=== PATIENT | male | born 1990 | race Caucasian/White ===

== ENCOUNTER 2021-03-27 14:06 | Emergency (ER) | payer MEDICAID, SELFPAY ==
[2021-03-27 14:16] VITALS: BP 150/92; PULSE 81; RESP 18; TEMP 36.7; O2SAT 100
--- NOTE | 2021-03-27 14:23 | ED.ABDPAIN ---
HPI - Abdominal Pain General Chief Complaint: Abdominal Pain Stated Complaint: vomiting/abdominal pain/chills/sore throat Time Seen by Provider: 03/27/21 14:27 Source: patient and RN notes reviewed Mode of arrival: ambulatory Limitations: no limitations History of Present Illness HPI narrative: 31-year-old male presents to the [facility] with complaints of right upper quadrant pain, nausea, vomiting, body aches for the last 3 days. Has not been able to eat or drink. Is requesting IV fluids. MD elicited complaint: abdominal pain Related Data Allergies Allergy/AdvReac Type Severity Reaction Status Date / Time No Known Allergies Allergy Unverified 09/23/14 00:46 Review of Systems Review of Systems: All systems reviewed & are unremarkable except as noted in HPI and below Constitutional: Constitutional: Reports as per HPI, Denies chills, Reports fatigue and Denies fever(s) Eyes: Eyes: Reports no additional eye complaints ENT: Reports system reviewed and no additional complaints, except as documented Cardiovascular: Cardiovascular: Reports no additional cardiovascular complaints and Denies chest pain Respiratory: Respiratory: Reports no additional respiratory complaints, Denies cough and Denies dyspnea Gastrointestinal: Gastrointestinal: Reports as per HPI, Reports abdominal pain, Reports nausea and Reports vomiting Genitourinary: Genitourinary: Reports no additional male genitourinary complaints Musculoskeletal: Musculoskeletal: Reports no additional musculoskeletal complaints Integumentary/Breasts: Skin/Breast: Reports system reviewed and no additional complaints, except as docu Neurologic: Reports system reviewed and no additional complaints, except as documented Psychiatric: Psychiatric: Reports no additional psychiatric complaints Allergic/Immunologic: Allergic/Immunologic: Reports no additional allergic/immunologic complaints PMFSH Past Medical History Medical History (Updated 03/27/21 @ 15:07 by Jagruti Castellanos) No significant medical problems Surgical History Surgical History (Updated 03/27/21 @ 15:04 by Jagruti Castellanos) No significant past surgical history Social History Social History (Updated 03/27/21 @ 15:04 by Jagruti Castellanos) Gender identity (if verbalized by the patient): Male Comments At the time of my signature, I reviewed and agree with the nursing past medical, surgical, social, and family history. There is no relevant family history pertinent to the patient complaint. Exam Const: General: no acute distress, alert and ill appearing acutely Nutritional Appearance: well nourished and obese Orientation/consciousness: patient oriented x3 Limitations: no limitations HENMT: Head: normal to inspection Ears: external ears normal, TM normal on the left and EAC's normal General nose exam: Normal external nose present and Normal nasal mucous membranes and turbinates present Mouth: No lip normal (Try), Yes dry mucous membranes and Yes malodorous breath Throat: posterior oropharynx normal, tonsils normal and uvula midline Eyes: Pupils: Equal, round and reactive pupils present Neck: Neck: normal visual inspection, no lymphadenopathy and no meningeal signs Chest: Chest palpation & inspection: normal inspection of the chest Resp: Effort & Inspection: normal respiratory effort Auscultation: clear to auscultation bilaterally Cardio: Rate: regular rate Rhythm: regular rhythm GI: GI Palp: Yes Soft to palpation and Yes Tenderness to palpation present (GI) (Epigastric, right upper quadrant) Back/Spine/Pelvis: Back: no CVA tenderness Skin: General skin exam: normal color Rashes: no rashes Wounds: no wounds Neuro: General: patient oriented x3, moves all extremities, no meningeal signs and no focal motor deficits Speech: normal speech Gait exam (Neuro): Normal gait present Extrem: General: normal to inspection Psych: Appearance: grossly normal and well kempt Mental Status: mental statu
[2021-03-28 18:52] LABS: SARS-CoV-2 RNA PCR Negative
== END 2021-03-27 14:36 | disposition short-term general hospital (02) ==
LOC: EXPCOLL 14:09
PROVIDERS: Emergency Provider Nurse Practitioner
DX: R10.11 Right upper quadrant pain (principal); R11.2 Nausea with vomiting, unspecified; Z20.822 Contact with and (suspected) exposure to COVID-19
CPT/HCPCS: 87081; 87880; 99213; C9803; G0463; U0003; U0005

== ENCOUNTER 2021-03-27 14:58 | Emergency (ER) | payer MEDICAID, SELFPAY ==
[2021-03-27] VITALS (7 sets, daily range): BP systolic 138–159; BP diastolic 99–110; PULSE 68–86; RESP 18–20; TEMP 36–36.8; O2SAT 98–100
--- NOTE | ~2021-03-27 | CT_ITS ---
EXAMINATION: CT abdomen pelvis w con DATE: 03/27/2021 21:52 INDICATION: Right upper quadrant abdominal pain. TECHNIQUE: Computed tomography (CT) of the abdomen and pelvis was performed with 100 mL Omnipaque 350 intravenous contrast. Automated exposure control and iterative reconstruction technique were employe d. The dose-length product was 1078.34 mGy-cm. COMPARISON: Ultrasound 09/24/2014 FINDINGS: The visualized portions of the lung bases demonstrate minimal atelectasis. No pleural effus ion. The heart size is normal. No pericardial effusion. There is diffuse hepatic steatosis. There are gallstones in the gallbladder, which is normal in size. The spleen, pancreas, adrenal glands, and ki dneys are normal. There are no dilated loops of bowel. The appendix is normal. There are no pathologi danielle enlarged lymph nodes. There is no free intraperitoneal fluid. There is mild chronic anterior we dging of T11 and T12 vertebral bodies. IMPRESSION: 1. Cholelithiasis. No evidence of acute cholecystitis. 2. Diffuse hepatic steatosis. Reviewed, dictated and finalized at location A.
[2021-03-27 15:37] LABS: Basophils Absolute Auto 0.1 K/mm3 (0.0-0.1); Basophils Percent Auto 1.1 % (0.2-1.2); Eosinophils Absolute Auto 0.3 K/mm3 (0-0.3); Eosinophils Percent Auto 3.5 % (0-4.4); Hematocrit 43.2 % (42.0-52.0); Hemoglobin 15.5 g/dL (14.0-18.0); Immature Granulocyte Absolute 0.02 K/mm3 (0.00-0.031); Immature Granulocyte Percent A 0.2 % (0-0.5); Lymphocytes Absolute Auto 2.04 K/mm3 (0.9-3.2); Lymphocytes Percent Auto 25.2 % (18.3-44.2); Mean Corpuscular HGB Conc 35.9 g/dl (32-36); Mean Corpuscular Hemoglobin 32.2 pg (26-34); Mean Corpuscular Volume 89.8 fl (80-100); Mean Platelet Volume 9.4 fl (7.4-10.4); Monocytes Absolute Auto 0.6 K/mm3 (0.1-0.6); Monocytes Percent Auto 7.6 % (2.6-8.5); Neutrophils Absolute Auto 5.1 K/mm3 (1.3-6.7); Neutrophils Percent Auto 62.4 % (45.5-73.1); Platelet Count Result 306 k/mm3 (150-375); Red Blood Count 4.81 M/mm3 (4.6-6.20); Red Cell Distribution Width 12.1 % (11.5-14.5); White Blood Count 8.1 K/mm3 (4.5-10.0)
[2021-03-27 15:46] LABS: Alanine Aminotransferase 49 U/L (4-50); Albumin Level 4.8 g/dL (3.5-5.1); Alkaline Phosphatase 82 U/L (38-126); Anion Gap 11 mmol/L (8-16); Aspartate Amino Transferase 38 U/L (17-59); Bilirubin,Total 0.9 mg/dL (0.2-1.3); Blood Urea Nitrogen 7 mg/dL (9-20); Calcium 9.4 mg/dL (8.4-10.2); Carbon Dioxide 26 mmol/L (22-30); Chloride 105 mmol/L (98-107); Estimated CRCL calculation 119 ml/min; Estimated Glomerular Filt Rate > 60; Glucose 92 mg/dL (65-110); Lipase 81 U/L (23-300); Potassium 4.1 mmol/L (3.4-5.0); Sodium 142 mmol/L (137-145)
[2021-03-27 20:00] LABS: Add Urine Microscopic? YES; Appearance Urine Clear (Clear); Bacteria Urine Trace /hpf; Bilirubin Urine Negative (Negative); Blood Urine Negative (Negative); Color Urine Yellow (Yellow); Glucose Urine UA Negative (Negative); Ketones Urine Negative (Negative); Leukocyte Esterase Ur Negative LEU/UL (Negative); Mucus Urine Heavy /lpf; Nitrate Urine Negative (Negative); Protein Urine 1+ mg/dL (Negative); Squamous Epithelial Cell Urine Rare /hpf (Few); WBC Urine 0-3 /hpf
[2021-03-27] MEDS: ONDANSETRON INJ 4 MG/2 ML VIAL IV PUSH (21:32)
[2021-03-27] MEDS: SODIUM CHLORIDE 0.9% IV 1,000 ML 999 ML IV CONT (21:32)
--- NOTE | 2021-03-27 21:43 | ED.ABDPAIN ---
HPI - Abdominal Pain General Chief Complaint: Abdominal Pain <Mayra Hernandez PA-C - Last Filed: 03/27/21 22:13> Stated Complaint: Vomiting, Sent from [facility] <JOSH Gomez Last Filed: 03/27/21 22:13> Time Seen by Provider: 03/27/21 20:21 <Mayra Hernandez PA-C - Last Filed: 03/27/21 22:13> Source: patient <JOSH Gomez Last Filed: 03/27/21 22:13> Mode of arrival: ambulatory <JOSH Gomez Last Filed: 03/27/21 22:13> Limitations: no limitations <JOSH Gomez Last Filed: 03/27/21 22:13> History of Present Illness HPI narrative: Patient presents from with [facility] of ruq pain and nausea. He states he has GERD with reflux but his symptoms since sunday are not the same. He reports his symptoms worsen with eating and drinking. He states he was told to come to the ER for further workup. He reports occasional acid like vomit from his gerd. He denies diarrhea or constipation. He denies taking medication to alliviate his symptoms. He reports taking 2 shots on but he does not think this started his symptoms. <Mayra Hernandez PA-C - Last Filed: 03/27/21 22:13> Related Data Allergies/Adverse Reactions: Allergies Allergy/AdvReac Type Severity Reaction Status Date / Time No Known Allergies Allergy Verified 03/27/21 21:50 <Mayra Hernandez PA-C - Last Filed: 03/27/21 22:13> Review of Systems Review of Systems: CONSTITUTIONAL: Denies fever, chills, or sweats. EYES: Denies visual changes, redness, or discharge. ENT: Denies rhinorrhea, congestion, sore throat, or otalgia. CARDIOVASCULAR: Denies chest pain, palpitations, or edema. RESPIRATORY: Denies cough or dyspnea. GASTROINTESTINAL: Reports abdominal pain, nausea, vomiting denies diarrhea or constipation SKIN: Denies rash or itching. MUSCULOSKELETAL: Denies back pain, myalgia, or joint pain NEUROLOGIC: Denies headache, numbness, dizziness, or weakness. PSYCHIATRIC: Denies anxiety or depression. <Mayra Hernandez PA-C - Last Filed: 03/27/21 22:13> PMFSH Past Medical History Medical History: Medical History (Updated 03/27/21 @ 22:01 by Mayra Hernandez PA-C) No significant medical problems <Mayra Hernandez PA-C - Last Filed: 03/27/21 22:13> Surgical History Surgical History: Surgical History (Updated 03/27/21 @ 15:04 by Jagruti Castellanos) No significant past surgical history <Mayra Hernandez PA-C - Last Filed: 03/27/21 22:13> Social History Social History: Social History (Updated 03/27/21 @ 15:04 by Jagruti Castellanos) Gender identity (if verbalized by the patient): Male <Mayra Hernandez PA-C - Last Filed: 03/27/21 22:13> Exam Narrative: GENERAL: Well-appearing, well-nourished. HEAD: Normocephalic, atraumatic. EYES: PERRLA and EOMI. NECK: Supple. No adenopathy or masses. No vertebral tenderness or loss of ROM. CHEST: Clear to auscultation. No respiratory distress. No wheezes rales or rhonchi HEART: Regular rate and rhythm. Normal peripheral pulses. ABDOMEN: Soft, tender epigastric and RUQ, nondistended, normal active bowel sounds. SKIN: Warm, dry, no rash. NEURO: No focal deficits. Alert and oriented x3. PSYCH: Normal mood and affect. <Mayra Hernandez PA-C - Last Filed: 03/27/21 22:13> Course Vital Signs Vital signs: Vital Signs Temperature 36.8 C 03/27/21 15:07 Pulse Rate 86 03/27/21 15:07 Respiratory Rate 18 03/27/21 15:07 Blood Pressure 158/100 H 03/27/21 15:07 Pulse Oximetry 100 03/27/21 15:07 Temperature 36.6 C 03/27/21 20:04 Pulse Rate 82 03/27/21 20:04 Respiratory Rate 18 03/27/21 20:04 Blood Pressure 158/110 H 03/27/21 20:04 Pulse Oximetry 98 03/27/21 20:04 <Mayra Hernandez PA-C - Last Filed: 03/27/21 22:13> Vital Signs Temperature 36.8 C 03/27/21 15:07 Pulse Rate 86 03/27/21 15:07 Respiratory Rate 18 03/27/21 15:07 Blood Pressure 158/100 H 03/27/21 15:07 Pulse Oximetr
== END 2021-03-28 00:26 | disposition home or self-care (01) ==
PROVIDERS: Emergency Provider Emergency Medicine
DX: R10.11 Right upper quadrant pain (principal)
CPT/HCPCS: 36415; 74177; 80053; 81001; 83690; 85025; 87081; 87880; 96365; 96375; 99284; C9803; J0131; J2405; J3010; J7030; Q9967; U0003; U0005

== ENCOUNTER 2022-03-06 10:52 | Emergency (ER) | payer OTHER, SELFPAY ==
--- NOTE | ~2022-03-06 | XR_ITS ---
EXAMINATION: XR ribs RT 2V DATE: 03/06/2022 12:03 INDICATION: Right chest wall pain. TECHNIQUE: 2 views of the right ribs on 4 radiographs were obtained. COMPARISON: Chest 2 views 09/23/2014, CT abdomen and pelvis 03/27/2021 FINDINGS: There is no right-sided pneumonia, pleural effusion, or pneumothorax. The heart size is nor mal. IMPRESSION: 1. No rib fracture. Reviewed, dictated and finalized at location A. IMPRESSION: 1. No rib fracture.
[2022-03-06 11:00] VITALS: BP 155/105; PULSE 108; RESP 22; TEMP 36.4; O2SAT 100
--- NOTE | 2022-03-06 12:22 | ED.FALL ---
HPI - Fall General Chief Complaint: Fall Stated Complaint: rib pain after fall Time Seen by Provider: 03/06/22 11:45 History of Present Illness HPI Narrative: 32-year-old male presents the emergency room complaints of right anterior lateral chest wall pain. Patient states that he was chasing after his kids on Sunday when he fell landing on the right side of his chest. Patient states the pain is worse with inspiration, touch and movement Related Data Allergies Allergy/AdvReac Type Severity Reaction Status Date / Time No Known Allergies Allergy Verified 03/27/21 21:50 Review of Systems Review of Systems: CONSTITUTIONAL: Denies fever, chills, or sweats. EYES: Denies visual changes, redness, or discharge. ENT: Denies rhinorrhea, congestion, sore throat, or otalgia. CARDIOVASCULAR: Reports chest wall pain RESPIRATORY: Denies cough or dyspnea. GASTROINTESTINAL: Denies abdominal pain, nausea, vomiting, or diarrhea. GENITOURINARY: Denies dysuria or hematuria. SKIN: Denies rash or itching. MUSCULOSKELETAL: Denies back pain, joint pain, or myalgia. NEUROLOGIC: Denies headache, numbness, dizziness, or weakness. PSYCHIATRIC: Denies anxiety or depression. PMFSH Past Medical History Medical History No significant medical problems Surgical History Surgical History No significant past surgical history Social History Social History Gender identity (if verbalized by the patient): Male Exam Narrative: GENERAL: Well-appearing, well-nourished, no physical limitations, and in no acute distress. HEAD: Normocephalic, atraumatic. EYES: Conjunctivae normal, PERRLA and EOMI. CHEST: Clear to auscultation. No respiratory distress. No wheezes rales or rhonchi. Right lower anterior lateral chest wall tenderness, no ecchymosis, no flail chest noted HEART: Regular rate and rhythm. No murmur heard. Normal peripheral pulses. ABDOMEN: Soft, nontender, nondistended, normal active bowel sounds. EXTREMITIES: Normal range of motion. No edema. No clubbing or cyanosis SKIN: Warm, dry, no rash. No noted wounds NEURO: No focal deficits. Alert and oriented x3. MAEW. CN's II-XI intact bilaterally, normal gait PSYCH: Cooperative. Normal mood and affect. Course Vital Signs Vital signs: Vital Signs Temperature 36.4 C L 03/06/22 11:00 Pulse Rate 108 H 03/06/22 11:00 Respiratory Rate 22 H 03/06/22 11:00 Blood Pressure 155/105 H 03/06/22 11:00 Pulse Oximetry 100 03/06/22 11:00 Oxygen Delivery Room Air 03/06/22 11:00 Temperature 36.4 C L 03/06/22 11:00 Pulse Rate 108 H 03/06/22 11:00 Respiratory Rate 22 H 03/06/22 11:00 Blood Pressure 155/105 H 03/06/22 11:00 Pulse Oximetry 100 03/06/22 11:00 Oxygen Delivery Room Air 03/06/22 11:00 MDM - Fall Imaging Data Radiologist's impression: Impressions Ribs X-Ray 03/06/22 12:09 IMPRESSION: 1. No rib fracture. Discharge Plan Discharge Clinical Impression: Chest wall contusion Patient Disposition: Home, Self-Care Condition: Stable Instructions: Antibiotic Form, Contusion in Adults (ED) Prescriptions: New celecoxib [Celebrex] 200 mg capsule 200 mg PO BID Qty: 20 0RF No Action omeprazole 20 mg capsule,delayed release(DR/EC) 20 mg PO DAILY Qty: 14 0RF ondansetron HCl [Zofran] 4 mg tablet 4 mg PO Q6H PRN (Reason: nausea and vomiting) Qty: 10 0RF Follow-up/Referrals: PHYSICIAN,SENIOR PRODUCER [Primary Care Provider] -
[2022-03-06] MEDS: KETOROLAC (*BKC) 60 MG/2 ML VIAL IM (12:36)
[2022-03-06 13:07] VITALS: BP 154/98; PULSE 78; RESP 16; O2SAT 98
== END 2022-03-06 13:08 | disposition home or self-care (01) ==
PROVIDERS: Emergency Provider Nurse Practitioner Family
DX: S20.211A Contusion of right front wall of thorax, initial encounter (principal); W18.30XA Fall on same level, unspecified, initial encounter
CPT/HCPCS: 71100; 96372; 99283; J1885

== ENCOUNTER 2023-05-20 12:42 | Emergency (ER) | payer OTHER, SELFPAY ==
[2023-05-20 13:20] VITALS: BP 146/96; PULSE 81; RESP 18; TEMP 36.5; O2SAT 98
--- NOTE | 2023-05-20 14:49 | ED.GENADULT ---
HPI - General Adult General Chief complaint: Upper Respiratory Infection Stated complaint: Cough Source: patient Mode of arrival: ambulatory Limitations: no limitations History of Present Illness HPI narrative: Patient presents for evaluation of sick symptoms for last five days. reports a cough with pleuritic chest pain and some mild shortness of breath. He also reports a sore throat, fever, chills, and nausea without vomiting or diarrhea. he has been taking cough drops, Tylenol, and ibuprofen for symptoms. He smokes 3/4 of a pack per day. He also does vape and smokes marijuana. His partner and son are both being evaluated today for sick symptoms. Related Data Home Medications Medication Instructions Recorded Confirmed ibuprofen 800 mg tablet mg 05/20/23 Allergies Allergy/AdvReac Type Severity Reaction Status Date / Time No Known Allergies Allergy Verified 05/20/23 13:30 Review of Systems Review of Systems: CONSTITUTIONAL: Reports hot flashes, fevers, and chills. EYES: Denies visual changes, redness, or discharge. ENT: Reports sore throat and nasal congestion CARDIOVASCULAR: Reports pleuritic chest pain. denies chest pain otherwise. RESPIRATORY: Reports cough and shortness of breath. GASTROINTESTINAL: Denies abdominal pain, nausea, vomiting, or diarrhea. GENITOURINARY: Denies dysuria or hematuria. SKIN: Denies rash or itching. MUSCULOSKELETAL: Denies back pain, joint pain, or myalgia. NEUROLOGIC: Denies headache, numbness, dizziness, or weakness. PSYCHIATRIC: Denies anxiety or depression. [facility] Past Medical History Medical History No significant medical problems Surgical History Surgical History No significant past surgical history Family History Family History Mother Family history non-contributory Social History Social History Smoking packs per day: 0.75 Smoking cigarettes per day: 15.0 Smoking status: Current every day smoker Substance use: current Substance use type: marijuana Gender identity (if verbalized by the patient): Male Sexual Orientation (if Verbalized by the Patient): Straight or Heterosexual Spiritual care concerns: No Exam Narrative: GENERAL: Well-appearing, well-nourished, and in no acute distress. HEAD: Normocephalic, atraumatic. EYES: PERRLA and EOMI. ENT: Nares clear, no rhinorrhea or epistaxis. Mucous membranes moist. Oropharynx without tonsillar hypertrophy exudate or other lesions. Bilateral TMs pearly de souza nonbulging NECK: Supple. No adenopathy or masses. No carotid bruits or JVD CHEST: occasional cough noted on exam. Clear to auscultation. No respiratory distress. No wheezes rales or rhonchi HEART: Regular rate and rhythm. No murmur heard. Normal peripheral pulses. ABDOMEN: Soft, nontender, nondistended, normal active bowel sounds. EXTREMITIES: Normal range of motion. No edema. SKIN: Warm, dry, no rash. NEURO: No focal deficits. Alert and oriented x3. PSYCH: Normal mood and affect. Course Course Emergency Course: This is a 33-year-old male who presented for evaluation of sick symptoms. COVID, influenza, strep were all negative. His family members' testing here was negative. Increase hydration. OTC agents for symptom management. Recommend smoking cessation. Follow up with primary provider. Go to the ER for worsening symptoms. Pt in agreement with plan of care. Level of Care: Express Care Visit Vital Signs Vital signs: Vital Signs Temperature 36.5 C 05/20/23 13:20 Pulse Rate 81 05/20/23 13:20 Respiratory Rate 18 05/20/23 13:20 Blood Pressure 146/96 H 05/20/23 13:20 Pulse Oximetry 98 05/20/23 13:20 Oxygen Delivery Room Air 05/20/23 13:20 [facility]
== END 2023-05-20 15:00 | disposition home or self-care (01) ==
PROVIDERS: Emergency Provider Nurse Practitioner
DX: B34.9 Viral infection, unspecified (principal); Z20.822 Contact with and (suspected) exposure to COVID-19; F17.210 Nicotine dependence, cigarettes, uncomplicated; F12.90 Cannabis use, unspecified, uncomplicated
CPT/HCPCS: 87081; 87426; 87804; 87880; 99213; C9803; G0463